=== PATIENT | male | born 1965 | race American Indian/Alaskan Native ===

== ENCOUNTER 2019-08-06 10:15 | Emergency (ER) | payer SELFPAY ==
--- NOTE | 2019-08-06 11:32 | Event Note ---
ED Screening Note ED Screening Note: c/o rectal pain from hemorrhoids states he lifted something heavy at work and it caused it to prolapse and he pushed it back in himself but is still having pain no rectal bleeding lower back pain This initial assessment/diagnostic orders/clinical plan/treatment(s) is/are subject to change based on patients health status, clinical progression and re- assessment by fellow clinical providers in the ED. Further treatment and workup at subsequent clinical providers discretion. Patient/guardian urged not to elope from the ED as their condition may be serious if not clinically assessed and managed.
[2019-08-06] MEDS ORDERED: traMADol 50 MG TAB PO ONE (14:14)
--- NOTE | 2019-08-06 14:19 | Emergency Department Report ---
ED Back Pain/Injury HPI - General Chief Complaint: Extremity Injury, Upper Stated Complaint: MIDDLE BACK PAIN/WORK INJURY/PAIN Time Seen by Provider: 08/06/19 11:29 Source: patient Limitations: No Limitations - History of Present Illness Initial Comments: 54-year-old male states that yesterday at work he lifted a tire that was so heavy that it caused his hemorrhoids to prolapse his lower back to hurt. He was able to push the hemorrhoid in. He's c/o low back pain. Taken Tylenol at home with no relief. He denies any bowel or bladder incontinence. No history of previous back injury. MD Complaint: back pain, back injury -: Sudden Similar Symptoms Previously: No Place: work Radiation: none Severity: severe Quality: sharp, aching Consistency: constant Improves With: none Worsens With: movement Context: while lifting Associated Symptoms: denies: confusion, weakness, chest pain, numbness, difficulty walking, cough, difficulty urinating, diaphoresis, fever/chills, constipation, headaches, abdominal pain, loss of appetite, malaise, nausea/vomiting, shortness of breath Treatments Prior to Arrival: acetaminophen - Related Data Previous Rx's Medication Instructions Recorded Last Taken Type Ibuprofen [Motrin] 600 mg PO Q8H PRN #31 tablet 08/06/19 Unknown Rx Allergies Allergy/AdvReac Type Severity Reaction Status Date / Time No Known Allergies Allergy Verified 08/06/19 10:39 ED Review of Systems ROS: Stated complaint: MIDDLE BACK PAIN/WORK INJURY/PAIN Other details as noted in HPI Comment: All other systems reviewed and negative Constitutional: no symptoms reported. denies: chills, fever Eyes: denies: eye pain Respiratory: denies: cough Cardiovascular: denies: chest pain, palpitations Endocrine: no symptoms reported Gastrointestinal: denies: abdominal pain, constipation Musculoskeletal: back pain Skin: denies: rash Neurological: denies: headache, weakness, paresthesias Psychiatric: denies: anxiety, depression ED Past Medical Hx - Past Medical History Previous Medical History?: No - Surgical History Past Surgical History?: No - Social History Smoking Status: Current Every Day Smoker Substance Use Type: Alcohol - Medications Home Medications: Home Medications Medication Instructions Recorded Confirmed Last Taken Type Ibuprofen [Motrin] 600 mg PO Q8H PRN #31 tablet 08/06/19 Unknown Rx ED Physical Exam - General Limitations: No Limitations General appearance: alert, in no apparent distress - Head Head exam: Present: atraumatic - Eye Eye exam: Present: normal appearance. Absent: scleral icterus - ENT ENT exam: Present: normal exam - Neck Neck exam: Present: normal inspection, full ROM. Absent: tenderness - Respiratory Respiratory exam: Present: normal lung sounds bilaterally. Absent: respiratory distress, chest wall tenderness - Cardiovascular Cardiovascular Exam: Present: regular rate, normal heart sounds - GI/Abdominal GI/Abdominal exam: Present: soft. Absent: distended, tenderness, guarding - Extremities Exam Extremities exam: Present: normal inspection, full ROM - Back Exam Back exam: Present: paraspinal tenderness, vertebral tenderness ED Course Vital Signs 08/06/19 10:39 Temperature 98.8 F Pulse Rate 93 H Respiratory 18 Rate Blood Pressure 133/85 O2 Sat by Pulse 100 Oximetry ED Medical Decision Making - Radiology Data Radiology results: report reviewed X-ray Lumbar Spine FINDINGS: BONES / JOINT(S): No acute fracture or subluxation. Mild degenerative disc disease scattered throughout the lumbar spine. SOFT TISSUES: No significant abnormality. ADDITIONAL FINDINGS: None. - Medical Decision Making 54-year-old man with complaining of back pain after lifting a heavy tire. X-ray of his lumbar spine showed no acute findings. Patient discharged with ibuprofen when necessary pain and to follow-up with his primary care or [facility]. Recent ambulatory with steady gait in no distress Critical Care Time: No Critical care attestation.: If time is entered above; I have spent that time in minutes in the direct care of this critically ill patient, excluding procedure time. ED Disposition Clinical Impression: Lumbar strain Qualifiers: Encounter type: initial encounter Qualified Code(s): S39.012A - Strain of muscle, fascia and tendon of lower back, initial encounter Disposition: DC-01 TO HOME OR SELFCARE Is pt being admited?: No Does the pt Need Aspirin: No Condition: Stable Instructions: Muscle Strain (ED), Low Back Strain (ED) Prescriptions: Ibuprofen [Motrin] 600 mg PO Q8H PRN #31 tablet PRN Reason: Pain Referrals: PRIMARY CARE, [Primary Care Provider] - 3-5 Days Time of Disposition: 15:18
--- NOTE | 2019-08-06 15:12 | XRay Report ---
MORE SPINE 3 VIEWS INDICATION / CLINICAL INFORMATION: low back pain/injury COMPARISON: None available. FINDINGS: BONES / JOINT(S): No acute fracture or subluxation. Mild degenerative disc disease scattered througho ut the lumbar spine. SOFT TISSUES: No significant abnormality. ADDITIONAL FINDINGS: None. Signer Name: Lamont Purdy MD Signed: 08/06/2019 3:08 PM Workstation Name: [id number]
[2019-08-06 15:31] VITALS: BP 130/80
== END 2019-08-06 15:29 | disposition home or self-care (01) ==
LOC: ED 10:15
DX: S39.012A Strain of muscle, fascia and tendon of lower back, initial encounter (principal); X58.XXXA Exposure to other specified factors, initial encounter; Y93.89 Activity, other specified; Y92.89 Other specified places as the place of occurrence of the external cause; Y99.8 Other external cause status
CPT/HCPCS: 72100